=== PATIENT | female | born 1950 | race African-American/Black ===

== ENCOUNTER 2021-01-31 13:41 | Emergency (ER) | payer BC, OTHER ==
[~2021-01-31] VITALS: Ht 152.4 cm; Wt 54.9 kg
--- NOTE | ~2021-01-31 | EMS ---
[address] [address] EMS Patient Care Report Name: ALEJANDRO ZHANG Room #: REG Dayna#: [id number] Admission: 01/31/21 Attend Phys: Discharge: Date of : 52 Report #: [id number] THIS REPORT FOR: //name// Report Transmitted: 01/31/2021 13:41 EMS Care Summary [place], [place]/[facility] Incident [id number] @ 01/31/2021 13:01 Incident Location [address] [facility] Patient ALEJANDRO ZHANG Female, 70 Years 1950 Patient Address [address] [place] [address] Patient History Other,Hypertension (HTN),Hyperlipidemia, Patient Allergies Codeine, Patient Medications ASA, Isosorbide, Potassium, Simvastatin, Carvedilol, Chief Complaint Syncope in the Dr. office Disposition Transported No Lights/[place] Dispatch Reason Chest Pain (Non-Traumatic) Transported To [facility] Narrative Called for a chest pain. Upon arrival, P36 on the scene. Pt came to the doctor's office for blood draw and had a syncopal episode while siting and talking to her daughter. Everything normal prior to arrival for blood draw. Pt denies dizziness, nausea and vomiting. She denies SOB. She says this has never happened before. She requests transport to [facility]. Pt moved to the EMS [address] [address] EMS Patient Care Report Name: ALEJANDRO ZHANG Room #: [facility]#: [id number] Admission: 01/31/21 Attend Phys: Discharge: Date of : 52 Report #: [id number] cot and loaded into the ambulance w/o incident. Vitals obtained. 12 Lead repeated. En route: no significant changes. Vitals repeated. RR to ER. Arrived: pt taken to ER and moved to their bed w/o incident. Pt care & report to ER staff. Initial Vitals @13:22P: 54,R: 18,BP: 88/56,Pain: 0/10,GCS: 15,SpO2: 95,Revised Trauma: 11,[place] Suspected: false @13:16P: 47,R: 16,BP: 90/50,Pain: 0/10,GCS: 15,SpO2: 95,Revised Trauma: 12,[place] Suspected: false @13:24P: 56,R: 16,BP: 94/56,Pain: 0/10,GCS: 15,Glucose: 101,SpO2: 96,Revised Trauma: 12,[place] Suspected: false Assessments @13:10MENTAL:Person Oriented,Time Oriented,Event Oriented,Place Oriented,SKIN:HEENT:LUNG SOUNDS:ABDOMEN:PELVIS//GI:EXTREMITIES:Left Arm: No Abnormalities,Right Arm: No Abnormalities,Left Leg: No Abnormalities,Right Leg: No Abnormalities,PULSE:Radial: 2+ Normal,NEURO:No Abnormalities, Impression Syncope / Fainting Procedures @13:2212-Lead ECGResponse: UnchangedSucceeded@PTASaline Lock 8cc (20 ga) Site: Antecubital-LeftResponse: UnchangedSucceeded@13:14StretcherResponse: Unchanged@13:163-Lead ECGResponse: UnchangedSucceeded@13:10ALS AssessmentResponse: UnchangedSucceeded Timeline PRODUCT MARKETING COORDINATOR,Saline Lock 8cc 20 ga Site: Antecubital-Left,Response: UnchangedSucceeded, 12:59,Call Received 12:59,Dispatch Notified 13:01,Dispatched 13:02,En Route 13:09,On Scene 13:10,At Patient 13:10,ALS Assessment,Response: UnchangedSucceeded, 13:14,Stretcher,Response: Unchanged 13:16,BP: 90/50 M,PULSE: 47,RR: 16 R,SPO2: 95 Ox,ETCO2: ,BG: ,PAIN: 0,GCS: 15, 13:16,3-Lead ECG,Response: UnchangedSucceeded, 13:22,12-Lead ECG,Response: UnchangedSucceeded, 13:22,BP: 88/56 M,PULSE: 54,RR: 18 R,SPO2: 95 Ox,ETCO2: ,BG: ,PAIN: 0,GCS: 15, 13:24,BP: 94/56 M,PULSE: 56,RR: 16 R,SPO2: 96 Ox,ETCO2: ,B,PAIN: 0,GCS: 15, 13:25,Depart Scene 13:32,[place] [address] EMS Patient Care Report Name: ALEJANDRO ZHANG Room #: REG NARCISA Mcintosh#: [id number] Admission: 01/31/21 Attend Phys: Discharge: Date of : 52 Report #: [id number] 13:51,Call Closed Disclaimer [email or web address] Copyright 2020 [employer] This EMS Care Summary contains data elements from the applicable legal record (which may be displayed differently). It is designed to provide pertinent information for the following purposes: continuity of care, clinical quality, and state data reporting. The complete legal record is available to ED staff and administrators of the receiving hospital in [employer] Patient Tracker. All data is provided "as is."
[~2021-01-31 13:41] MED LIST: FLEXERIL PO; LOTREL 5-10 MG1 EACH PO; NORCO 5-325 TA1 EACH PO
[2021-01-31 14:17] LABS: ABSOLUTE NEUTROPHILS 3.5 thou/uL (1.4-8.2); BASOPHILS 0.7 % (0.0-2.0); EOSINOPHILS 1.9 % (0.0-3.0); HEMATOCRIT 32.1 % (37.0-47.0); HEMOGLOBIN 10.8 gm/dL (12.0-15.0); LYMPHOCYTES 22.8 % (24.0-44.0); MCH 29.5 pg (26.0-34.0); MCHC 33.6 g/dL (28.0-37.0); MCV 87.8 fL (80.0-100.0); MONOCYTES 8.1 % (1.0-8.0); PLATELET COUNT 248 thou/uL (150-400); POLYS 66.5 % (36.0-66.0); RBC 3.66 mil/uL (4.20-5.00); RDW 14.6 % (10.5-14.5); WBC 5.2 thou/uL (4.0-11.0)
[2021-01-31 14:24] LABS: CALCIUM 8.9 mg/dL (8.5-10.1); CREATININE 1.7 mg/dL (0.6-1.0); POTASSIUM 3.8 mmol/L (3.5-5.1)
[2021-01-31 14:34] LABS: ALBUMIN 3.4 g/dL (3.4-5.0); TOTAL BILIRUBIN 0.4 mg/dL (0.2-1.0); TOTAL PROTEIN 7.2 g/dL (6.4-8.2); TROPONIN-I 0.06 ng/mL (<0.06)
[2021-01-31 16:12] LABS: URINE BILIRUBIN NEGATIVE (Negative); URINE BLOOD NEGATIVE (Negative); URINE CLARITY CLEAR; URINE COLOR YELLOW; URINE GLUCOSE-RANDOM* NEGATIVE (Negative); URINE KETONES NEGATIVE (Negative); URINE LEUKOCYTES-REFLEX NEGATIVE (Negative); URINE NITRITE-REFLEX NEGATIVE (Negative); URINE PROTEIN (DIPSTICK) NEGATIVE (Negative); URINE UROBILINOGEN 0.2 E.U./dl (0.2-1.0)
--- NOTE | 2021-01-31 16:44 | EKG ---
[address] [address] ELECTROCARDIOGRAM REPORT Name: ALEJANDRO ZHANG Room #: [facility]#: [id number] Admission: 01/31/21 Attend Phys: Discharge: Date of : 52 Report #: [id number] [facility] ED Test Date: 2021-01-31 Test Time: 13:57:17 Pat Name: ALEJANDRO ZHANG Department: Room: Gender: F Carpenter [employer]: ISAIAS : 1950 Requested By: Micha Coe Order Number: [id number] MD: Mitesh Cao Measurements Intervals [place] Rate: 56 P: 49 NH: 173 QRS: 17 QRSD: 100 T: 184 QT: 473 QTc: 457 Interpretive Statements Sinus rhythm LVH with secondary repolarization abnormality No previous ECG available for comparison Electronically Signed On 01-31-2021 16:44:06 CDT by Mitesh Cao [email or web address] <ELECTRONICALLY SIGNED> By: Mitesh Cao MD, [facility] 01/31/21 1644 [id number] Mitesh Cao MD, FACC /EPI
[2021-01-31 17:27] VITALS: BP 139/79
== END 2021-01-31 17:30 | disposition home or self-care (01) ==
LOC: ER 13:41
PROVIDERS: Emergency Medicine
DX: R55 Syncope and collapse (principal); I10 Essential (primary) hypertension; Z88.5 Allergy status to narcotic agent; Z90.710 Acquired absence of both cervix and uterus